=== PATIENT | male | born 1945 | race Caucasian/White ===

== ENCOUNTER → 2017-02-19 | Outpatient (CLI) | payer BC, OTHER ==
[~2017-02-19] MED LIST: ASCO10003 PO; ASPI325T45 PO; CALC-393 PO; CHOL100027 PO; CYAN500T PO; GLUCTAB7 PO; INSDGI SC; INSU100I SC; INSU1INJ23 SC; LOSA100T33 PO; METF-384 PO; MULT-506 PO; OMEP20CA9 PO; PLN/10 PO; PRAV20TA PO; TERA5CAP PO; ZINC1TAB PO
[2017-02-19 09:35] LABS: BASO % 0.8 %; BASO ABS # 0.03 K/uL (0-0.2); COMPLETE YES; EOS % 2.8 %; HEMATOCRIT 42.9 % (42-52); IG% 0.3 %; LYMPH % 46.7 %; LYMPH ABS # 1.82 K/uL (1.2-3.4); MEAN CELL VOLUME 92.7 fL (80-100); MEAN CORPUSCULAR HEMOGLOBIN 30.2 pg (25-34); MEAN CORPUSCULAR HGB CONC 32.6 g/dl (32-36); MEAN PLATELET VOLUME 10.9 fL (7.4-10.4); NEUT % 38.4 %; PLATELET COUNT 220 K/uL (130-400); RED BLOOD COUNT 4.63 M/uL (4.7-6.1)
[2017-02-19 09:55] LABS: CALCIUM 9.5 mg/dl (8.5-10.1)
[2017-02-19 09:56] LABS: ESTIMATED AVERAGE GLUCOSE 140 mg/dl; HA1C FLAG Normal (Normal)
[2017-02-19 09:57] LABS: ALB/GLOB RATIO 1.4 (0.9-2); ALT/SGPT 23 U/L (12-78); AST/SGOT 14 U/L (15-37); BLOOD UREA NITROGEN 24 mg/dl (7-18); CARBON DIOXIDE 31 mmol/L (21-32); CHLORIDE 104 mmol/L (98-107); CHOLESTEROL 131 mg/dl (0-200); CREATININE 0.76 mg/dl (0.60-1.40); GLUCOSE 116 mg/dl (70-99); POTASSIUM 3.9 mmol/L (3.5-5.1); SODIUM 142 mmol/L (136-145); TRIGLYCERIDES 31 mg/dl (0-150); VERY LOW DENSITY LIPOPROT CALC 6 mg/dl
[2017-02-19 10:07] LABS: ALKALINE PHOSPHATASE 57 U/L (45-117); CHOLESTEROL/HDL RATIO 1.9; HDL CHOLESTEROL 70 mg/dl; LDL CHOLESTEROL CALCULATED 55 mg/dl
[2017-02-19 10:25] LABS: RATIO 5.2 mcg/mg (0-30.0)
== END | disposition home or self-care (01) ==
LOC: C.LAB1850 07:18
PROVIDERS: ATTEND Internal Medicine Pulmonary Disease
DX: M50.90 Cervical disc disorder, unspecified, unspecified cervical region (principal); I10 Essential (primary) hypertension; G47.33 Obstructive sleep apnea (adult) (pediatric); E11.9 Type 2 diabetes mellitus without complications; M79.671 Pain in right foot

== ENCOUNTER → 2017-11-12 | Outpatient (CLI) | payer BC, OTHER | END | disposition home or self-care (01) | LOC: C.LAB1850 08:48 | DX: R97.20 Elevated prostate specific antigen [PSA] (principal) ==

== ENCOUNTER → 2017-11-22 | Outpatient (CLI) | payer BC, OTHER | END | disposition home or self-care (01) | LOC: C.RDSM 14:32 | PROVIDERS: ATTEND Physical Medicine & Rehabilitation Sports Medicine | DX: M25.569 Pain in unspecified knee (principal); Z96.652 Presence of left artificial knee joint ==

== ENCOUNTER → 2017-12-02 | Outpatient (CLI) | payer BC, OTHER | END | disposition home or self-care (01) | LOC: C.LAB1850 08:13 | PROVIDERS: ATTEND Nurse Practitioner Adult Health | DX: E11.9 Type 2 diabetes mellitus without complications (principal); Z79.4 Long term (current) use of insulin ==

== ENCOUNTER → 2018-01-31 | Outpatient (CLI) | payer BC, OTHER ==
[~2018-01-31] MED LIST changes: +ASPECOTC PO; -ASPI325T45 PO; +CALC600T9 PO; +IBUP1TAB PO; +MUSCLE RELAXER PO; +NAPR1TAB9 PO
[2018-01-31 09:41] LABS: BASO % 0.7 %; BASO ABS # 0.03 K/uL (0-0.2); EOS % 2.6 %; EOS ABS # 0.12 K/uL (0-0.5); HEMATOCRIT 43.4 % (42-52); HEMOGLOBIN 14.6 g/dL (14.0-18.0); IG# 0.03 K/uL (0.00-0.02); LYMPH ABS # 1.83 K/uL (1.2-3.4); MEAN CORPUSCULAR HEMOGLOBIN 30.6 pg (25-34); MEAN CORPUSCULAR HGB CONC 33.6 g/dl (32-36); MEAN PLATELET VOLUME 10.7 fL (7.4-10.4); MONO % 8.3 %; MONO ABS # 0.38 K/uL (0.11-0.59); NEUT % 47.7 %; NEUT ABS # 2.19 K/uL (1.4-6.5); PLATELET COUNT 233 K/uL (130-400); RED CELL DISTRIBUTION WIDTH CV 13.5 % (11.5-14.5); RED CELL DISTRIBUTION WIDTH SD 44.5 fL (36.4-46.3); WHITE BLOOD COUNT 4.58 K/uL (4.8-10.8)
[2018-01-31 10:08] LABS: ALBUMIN 3.9 gm/dl (3.4-5.0); ALT/SGPT 20 U/L (12-78); AST/SGOT 11 U/L (15-37); BLOOD UREA NITROGEN 24 mg/dl (7-18); CALCIUM 8.8 mg/dl (8.5-10.1); CARBON DIOXIDE 31 mmol/L (21-32); CHOLESTEROL 148 mg/dl (0-200); GLUCOSE 136 mg/dl (70-99); POTASSIUM 3.5 mmol/L (3.5-5.1); SODIUM 137 mmol/L (136-145)
[2018-01-31 10:18] LABS: ALKALINE PHOSPHATASE 60 U/L (45-117); LDL CHOLESTEROL CALCULATED 60 mg/dl; TOTAL PROTEIN 6.9 gm/dl (6.4-8.2)
== END | disposition home or self-care (01) ==
LOC: C.LAB1850 07:58
PROVIDERS: ATTEND Internal Medicine Pulmonary Disease
DX: E11.9 Type 2 diabetes mellitus without complications (principal); E78.5 Hyperlipidemia, unspecified; G47.33 Obstructive sleep apnea (adult) (pediatric); I10 Essential (primary) hypertension

== ENCOUNTER → 2018-02-02 | Outpatient (CLI) | payer BC, OTHER ==
[~2018-02-02] MED LIST changes: -CALC-393 PO; -GLUCTAB7 PO
--- NOTE | 2018-02-03 20:25 | HISTORY & PHYSICAL EXAMINATION ---
DATE OF ADMISSION: 02/02/2018 PREOPERATIVE HISTORY AND PHYSICAL DATE OF SURGERY: 02/23/2018 CHIEF COMPLAINT: Left knee pain. HISTORY OF PRESENT ILLNESS: This 72-year-old white male presents to the office with complaints of left knee pain that has been ongoing for a long period of time. Pain has become worse with time. It is affecting his ADLs. It is worse with weightbearing. No recent injury. He denies any catching or locking. No buckling. No numbness or tingling. He has a history of previous right total knee arthroplasty done many years ago. He states it is functioning well and wishes to proceed with the same on the left. Preoperative imaging has been obtained. He has tried conservative care measures including activity modification and oral anti-inflammatories without relief. PAST MEDICAL HISTORY: Significant for hypertension, sleep apnea, migraine headaches, diabetes, osteoarthritis, back pain, GERD, kidney stones, BPH, history of skin cancer, and moderate obesity. PREVIOUS SURGERIES: Appendectomy, varicocele repair, left knee arthroscopy, right knee TKA, back surgery for herniated disc, and skin biopsies for cancer. ALLERGIES: NKDA. CURRENT MEDICATIONS: Aspirin 325 mg daily, calcium daily, clobetasol 0.05% topical cream daily, felodipine 10 mg p.o. daily, glucosamine daily, Humalog subcutaneous daily, HCTZ/losartan 25/100 mg p.o. daily, Lantus SoloSTAR subcutaneous at bedtime, metformin 1000 mg p.o. daily, multivitamin daily, omeprazole 40 mg p.o. daily, pravastatin 20 mg p.o. at bedtime, terazosin 5 mg p.o. daily, vitamin C daily, zinc daily. SOCIAL HISTORY: Patient is retired. No tobacco use, occasional ETOH use. FAMILY HISTORY: Noncontributory. Parents are . REVIEW OF SYSTEMS: Significant for above stated conditions, otherwise unremarkable. PHYSICAL EXAMINATION: GENERAL: Well-developed, well-nourished elderly white male in no acute distress. Sitting in a chair. Alert and oriented. SKIN: Warm and dry with good turgor. No rashes or lesions. No ecchymosis. No intraarticular effusion. HEENT: Normocephalic, atraumatic. Eyes: PERRLA, EOMI. EARS: TMs intact bilaterally with good light reflexes, no erythema or bulging. Nares patent bilaterally without turbinate enlargement. Oropharynx without erythema or exudate. No lesions noted. Uvula midline. Oral mucosa moist. Fair dentition. Fillings and caps are noted. HEART: RRR. No MGR. LUNGS: Clear to auscultation bilaterally. No crackles, rhonchi or wheezing. Good air movement. ABDOMEN: Bowel sounds present x4, soft, nontender. No organomegaly. No masses. Moderately obese. MUSCULOSKELETAL: Left knee evaluation reveals no obvious asymmetry or deformity. He has full terminal extension. Flexion greater than 110 degrees. Varus alignment. Pseudovalgus laxity. Stable collateral ligaments. There is palpable crepitation with range of motion. Ambulatory with a slightly antalgic gait. NEUROLOGIC: Gross sensation is intact across the lower extremities by soft touch. Cranial nerves II-XII are intact. DATA: Radiographic imaging previously obtained shows advanced DJD of the left knee medial compartment. He has significant joint space narrowing. Subchondral cyst formation and varus alignment are also present. Periarticular osteophytes are also present. IMPRESSION: Left knee end-stage degenerative joint disease. PLAN: Informed written consent to proceed with left total knee arthroplasty will be obtained the day of surgery. Postoperative prescriptions for Percocet and Coumadin will be provided at discharge from the hospital. Anticipate discharge to home with either outpatient PT or home health services. He already has a walker. Preoperative lab work, EKG, and chest x-ray have been ordered. Medical clearance was requested from his PCP.
== END | disposition home or self-care (01) ==
LOC: C.LAB1850 10:22
PROVIDERS: ATTEND Physician Assistant
DX: Z01.812 Encounter for preprocedural laboratory examination (principal)

== ENCOUNTER 2018-02-23 05:04 | Inpatient (IN) | payer BC, OTHER ==
[2018-01-31 11:20] VITALS: BMI 31.0
--- NOTE | 2018-01-31 11:57 | PAT Medication Instructions ---
Service Date Jan 31, 2018. Current Home Medication List Ascorbic Acid (Vitamin C), 1,000 MG PO BID Aspirin (Aspirin), 325 MG PO QAM Calcium Carbonate-Vitamin D (Calcium + D), 1 TAB PO QAM Cholecalciferol (Vitamin D 1000 Unit), 1,000 INTER.UNIT PO QPM Cyanocobalamin (Vitamin B-12), 2,500 MCG PO BID Felodipine (Felodipine ER), 10 MG PO QPM Hctz/Losartan (Hyzaar 12.5MG/100MG), 1 TAB PO QAM Ibuprofen-Diphenhydramine Citr (Advil Pm), 1 TAB PO UD PRN for PRN Insulin Glargine (Lantus), 8 UNITS SC HS Insulin Isophane (Human) (Humulin N Kwikpen), 16 UNITS SC HS Insulin Lispro (Human) (Humalog), 3-10 UNITS SC Metformin Hcl (Glucophage), 1,000 MG PO QAM Multivitamin (Multivitamin), 1 TAB PO QAM Naproxen (Aleve), 220 MG PO UD PRN for PRN Omeprazole (Prilosec), 20 MG PO BID Pravastatin (Pravachol ), 20 MG PO QPM Terazosin (Hytrin), 5 MG PO QPM Zinc Gluconate (Zinc), 50 MG PO QAM [Muscle Relaxer], Unknown Dose PO UD PRN for MUSCLE SPASM Medication Instructions For Your Scheduled Surgery -Contact your surgeon for instructions for: Ibuprofen-Diphenhydramine Citr (Advil Pm), 1 TAB PO UD PRN for PRN Naproxen (Aleve), 220 MG PO UD PRN for PRN - Hold the following medications 5 days prior to surgery per your surgeon's instructions: Aspirin (Aspirin), 325 MG PO QAM - Hold the following medications the morning of surgery: Ascorbic Acid (Vitamin C), 1,000 MG PO BID Calcium Carbonate-Vitamin D (Calcium + D), 1 TAB PO QAM Cyanocobalamin (Vitamin B-12), 2,500 MCG PO BID Hctz/Losartan (Hyzaar 12.5MG/100MG), 1 TAB PO QAM Insulin Lispro (Human) (Humalog), 3-10 UNITS SC Metformin Hcl (Glucophage), 1,000 MG PO QAM Multivitamin (Multivitamin), 1 TAB PO QAM Zinc Gluconate (Zinc), 50 MG PO QAM [Muscle Relaxer], Unknown Dose PO UD PRN for MUSCLE SPASM - Take the following medications the morning of surgery with a sip of water: Omeprazole (Prilosec), 20 MG PO BID - Take the following medications as scheduled the night before surgery: Ascorbic Acid (Vitamin C), 1,000 MG PO BID Cholecalciferol (Vitamin D 1000 Unit), 1,000 INTER.UNIT PO QPM Cyanocobalamin (Vitamin B-12), 2,500 MCG PO BID Felodipine (Felodipine ER), 10 MG PO QPM Insulin Glargine (Lantus), 8 UNITS SC HS Insulin Isophane (Human) (Humulin N Kwikpen), 16 UNITS SC HS Insulin Lispro (Human) (Humalog), 3-10 UNITS SC Omeprazole (Prilosec), 20 MG PO BID Pravastatin (Pravachol ), 20 MG PO QPM Terazosin (Hytrin), 5 MG PO QPM [Muscle Relaxer], Unknown Dose PO UD PRN for MUSCLE SPASM (if needed) If you have any questions please call us at [phone] or [phone] or [phone]
[2018-01-31 12:53] LABS: PTT PATIENT 27.8 SECONDS (21.0-31.0)
--- NOTE | 2018-01-31 14:06 | DIAGNOSTIC IMAGING REPORT ---
CHEST 2 VIEWS ROUTINE CLINICAL HISTORY: 72 years-old Male presenting with preoperative assessment. TECHNIQUE: PA and lateral views of the chest were obtained. COMPARISON: 06/19/2014. FINDINGS: Atherosclerosis of the aortic arch. Cardiac silhouette normal in size. Lungs and pleural spaces clear. Degenerative changes of the thoracic spine. Cholecystectomy clips noted. IMPRESSION: 1. No acute cardiopulmonary disease. Electronically signed by: Moreno Andre M.D. 01/31/2018 2:05 PM Dictated Date/Time: 01/31/2018 2:04 PM
--- NOTE | 2018-02-03 20:25 | HISTORY & PHYSICAL EXAMINATION ---
DATE OF SURGERY: 02/23/2018 CHIEF COMPLAINT: Left knee pain. HISTORY OF PRESENT ILLNESS: This 72-year-old white male presents to the office with complaints of left knee pain that has been ongoing for over a year. Pain has become worse with time. It is affecting his ADLs. It is worse with weightbearing. No recent injury. He denies any catching or locking. No buckling. No numbness or tingling. He has a history of previous right total knee arthroplasty done many years ago. He states it is functioning well and wishes to proceed with the same on the left. Preoperative imaging has been obtained. He has tried conservative care measures including activity modification and oral anti-inflammatories without relief. PAST MEDICAL HISTORY: Significant for hypertension, sleep apnea, migraine headaches, diabetes, osteoarthritis, back pain, GERD, kidney stones, BPH, history of skin cancer, and moderate obesity. PREVIOUS SURGERIES: Appendectomy, varicocele repair, left knee arthroscopy, right knee TKA, back surgery for herniated disc, and skin biopsies for cancer. ALLERGIES: NKDA. CURRENT MEDICATIONS: Aspirin 325 mg daily, calcium daily, clobetasol 0.05% topical cream daily, felodipine 10 mg p.o. daily, glucosamine daily, Humalog subcutaneous daily, HCTZ/losartan 25/100 mg p.o. daily, Lantus SoloSTAR subcutaneous at bedtime, metformin 1000 mg p.o. daily, multivitamin daily, omeprazole 40 mg p.o. daily, pravastatin 20 mg p.o. at bedtime, terazosin 5 mg p.o. daily, vitamin C daily, zinc daily. SOCIAL HISTORY: Patient is retired. No tobacco use, occasional ETOH use. FAMILY HISTORY: Noncontributory. Parents are . REVIEW OF SYSTEMS: Significant for above stated conditions, otherwise unremarkable. PHYSICAL EXAMINATION: GENERAL: Well-developed, well-nourished elderly white male in no acute distress. Sitting in a chair. Alert and oriented. SKIN: Warm and dry with good turgor. No rashes or lesions. No ecchymosis. No intraarticular effusion. HEENT: Normocephalic, atraumatic. Eyes: PERRLA, EOMI. EARS: TMs intact bilaterally with good light reflexes, no erythema or bulging. Nares patent bilaterally without turbinate enlargement. Oropharynx without erythema or exudate. No lesions noted. Uvula midline. Oral mucosa moist. Fair dentition. Fillings and caps are noted. HEART: RRR. No MGR. LUNGS: Clear to auscultation bilaterally. No crackles, rhonchi or wheezing. Good air movement. ABDOMEN: Bowel sounds present x4, soft, nontender. No organomegaly. No masses. Moderately obese. MUSCULOSKELETAL: Left knee evaluation reveals no obvious asymmetry or deformity. He has full terminal extension. Flexion greater than 110 degrees. Varus alignment. Pseudovalgus laxity. Stable collateral ligaments. There is palpable crepitation with range of motion. Ambulatory with a slightly antalgic gait. NEUROLOGIC: Gross sensation is intact across the lower extremities by soft touch. Cranial nerves II-XII are intact. DATA: Radiographic imaging previously obtained shows advanced DJD of the left knee medial compartment. He has significant joint space narrowing. Subchondral cyst formation and varus alignment are also present. Periarticular osteophytes are also present. IMPRESSION: Left knee end-stage degenerative joint disease. PLAN: Informed written consent to proceed with left total knee arthroplasty will be obtained the day of surgery. Postoperative prescriptions for Percocet and Coumadin will be provided at discharge from the hospital. Anticipate discharge to home with either outpatient PT or home health services. He already has a walker. Preoperative lab work, EKG, and chest x-ray have been ordered. Medical clearance was requested from his PCP. JUDY
[~2018-02-23] VITALS: Ht 182.9 cm; Wt 103.4 kg
[2018-02-23] VITALS (10 sets, daily range): BP systolic 108–128; BP diastolic 71–81; PULSE 51–71; TEMP 36.4–36.8; O2SAT 94–100; BMI 31.0
[2018-02-23] MEDS ORDERED: TRANEXAMIC ACID INJ 1,000 MG x 2 Bags IV SCH ×2 (06:00)
[2018-02-23] MEDS ORDERED: ROPIVACAINE 5MG/ML 30 ML 150 MG, BUPIVACAINE 0.5% MPF INJ 30 ML, EpINEphrine HCL INJ 0.... INFIL SCH ×8 (06:00)
[2018-02-23] MEDS ORDERED: LACTATED RINGER'S 1000ML 1,000 ML IV SCH (06:00)
[2018-02-23] MEDS ORDERED: LACTATED RINGER'S 1000ML IV SCH (06:00)
[2018-02-23] MEDS ORDERED: CEFAZOLIN 2000MG IV PUSH 15 ML IV SCH (06:00)
[2018-02-23] MEDS ORDERED: BUPIVACAINE 0.25% 30 ML VIAL ONE (06:21)
[2018-02-23] MEDS ORDERED: BUPIVACAINE 0.5 % 5 MG/1 ML PF 10ML VIAL ONE (06:21)
--- NOTE | 2018-02-23 06:25 | History & Physical Bridge Note ---
H&P Re-Evaluation Bridge Note: I have examined the patient, reviewed the History & Physical and in the interval since the performance of the History & Physical I have noted the following changes of clinical significance: consent obtained.No changes noted
[2018-02-23] MEDS ORDERED: ORTHO JOINT ANESTHETIC ONE (06:26)
[2018-02-23] MEDS ORDERED: POVIDONE-IODINE OP SOLN 30 ML BTL ONE (06:26)
[2018-02-23] MEDS ORDERED: MIDAZOLAM HCL 1 MG/ML 2ML VIAL ONE ×2 (06:40→06:42)
[2018-02-23] MEDS ORDERED: LIDOCAINE HCL 2% 2 ML VIAL (20MG/ML) ONE (06:42)
[2018-02-23] MEDS ORDERED: FENTANYL CITRATE INJ 50 MCG/1 ML 2 ML VIAL ONE (06:42)
[2018-02-23] MEDS ORDERED: PROPOFOL IV EMULSION 10 MG/ML 20 ML VIAL ONE (06:42)
[2018-02-23] MEDS ORDERED: NovoLIN-R INSULIN PER UNIT CHARGE ONE (07:58)
--- NOTE | 2018-02-23 08:24 | [facility] Post Operative Brief Note ---
Immediate Operative Summary Operative Date February 23, 2018. Pre-Operative Diagnosis Left Knee Degenerative Joint Disease Post-Operative Diagnosis Same as preop Procedure(s) Performed Left Total Knee Arthroplasty Surgeon Dr. Burton Supervisor Contingents Surgeon(s) Donovan Flores PA-C Estimated Blood Loss 100 ml Findings Consistent with Post-Op Diagnosis Fluids (cc crystalloids) 1100cc Specimens A. Right Knee Bone and Tissue Drains None Anesthesia Type MAC Spinal Regional Complication(s) none Disposition Accompanied Pt To Recover: no Disposition: Recovery Room / PACU
[2018-02-23] MEDS ORDERED: ONDANSETRON INJ 2 MG/ML 2 ML VIAL IV PRN ×2 (08:30)
[2018-02-23] MEDS ORDERED: BISACODYL 10 MG SUPP PR PRN (08:30)
[2018-02-23] MEDS ORDERED: METOCLOPRAMIDE HCL INJ 5 MG/ML 2 ML VIAL IV PRN (08:30)
[2018-02-23] MEDS ORDERED: ALUMINUM/MAGNESIUM/SIMETH (MAALOX MAX) 30 ML UDC PO PRN (08:30)
[2018-02-23] MEDS ORDERED: MAGNESIUM HYDROXIDE SUSP 30 ML UDC PO PRN (08:30)
[2018-02-23] MEDS ORDERED: DiphenhydrAMINE HCL 50 MG/ML VIAL IV PRN (08:30)
[2018-02-23] MEDS ORDERED: ACETAMINOPHEN 325 MG TAB PO PRN (08:30)
[2018-02-23] MEDS ORDERED: ATROPINE SULFATE 0.1 MG/ML 5ML SYR IV PRN (08:30)
[2018-02-23] MEDS ORDERED: ACETAMINOPHEN IV 100 ML IV PRN (08:30)
[2018-02-23] MEDS ORDERED: EpHEDrine SULFATE INJ 50 MG/ML AMP IV PRN (08:30)
[2018-02-23] MEDS ORDERED: MoRPHine SULFATE 4 MG/ML 1 ML CARP\\VIAL IV PRN (08:30)
[2018-02-23] MEDS: LOSARTAN/HCTZ 50-12.5 EA TAB PO SCH (09:00)
--- NOTE | 2018-02-23 09:10 | DIAGNOSTIC IMAGING REPORT ---
L KNEE 1 OR 2 VIEWS ROUTINE CLINICAL HISTORY: 72 years-old Male presenting with AP/LATERAL IN PACU LEFT KNEE. TECHNIQUE: Frontal and crosstable lateral views of the left knee were obtained. COMPARISON: 11/22/2017. FINDINGS: Post surgical changes of total left knee arthroplasty with patellar resurfacing. Expected intra-articular and soft tissue emphysema. Overlying skin faith. A loose body or degenerative related ossicle is noted at the medial and posterior knee joint. No periprosthetic fracture. No malalignment. No hardware complication. IMPRESSION: Expected postsurgical changes status post left knee arthroplasty with patellar resurfacing. Electronically signed by: Moreno Andre M.D. 02/23/2018 9:09 AM Dictated Date/Time: 02/23/2018 9:08 AM
--- NOTE | 2018-02-23 09:16 | OPERATIVE REPORT ---
DATE OF OPERATION: 02/23/2018 SURGEON: Dewey Burton MD FROG CATCHER: Sandra. No resident or fellow available. PREOPERATIVE DIAGNOSIS: Osteoarthritis with varus deformity, left knee. POSTOPERATIVE DIAGNOSIS: Osteoarthritis with varus deformity, left knee. OPERATION PERFORMED: Cemented left total knee replacement. PERIOPERATIVE SITUATION: Medically cleared male with intractable knee pain, has been followed for years with observation of his left knee, had his right knee replaced years ago. Now, has increasing pain with x-rays revealing substantial varus medial compartment narrowing, subchondral cyst formation, and lateral subluxation. SUMMARY OF IMPLANTS: Size 3 left femur, posterior cruciate substituting size 4 mobile bearing tray tibia, oval domed 3 pegged patella size 41, size 3 spacer 10 mm thick PCL substituting, Two bags of Pal[place]os G cement. ESTIMATED BLOOD LOSS: 100 mL. CRYSTALLOID: 1100 mL. DESCRIPTION OF PROCEDURE: The patient was appropriately identified, site verified, consent verified, 2 grams of Ancef confirmed as being given, 1 gram of TXA confirmed as being given. The left lower extremity was prepped and draped in the usual routine fashion. There was 1 gram of TXA. Midline exposure was utilized. Parapatellar arthrotomy performed. Synovectomy completed, osteophytes resected. Distal femur had grade 4 disease, medial grade 4 disease tibia, substantial patellofemoral disease grade 3-4 throughout, lateral compartment grade 2 disease. The ACL was absent. The PCL was intact. Osteophytes were resected. The box area did open up and the distal femur entered with a drill bit. The cruciates were resected. Distal femur then resected 12 mm, the proximal tibia then resected 4 mm, the extension gap was excellent. Femur was sized to a size 3. Appropriate cutting block applied. The anterior, posterior, chamfer cuts were then made and there was no notching. The flexion gap was then checked. It was excellent. Two injections of Orthomix were applied to the posterior capsule. Flexion gap again was excellent. A box cut was then made and the size 3 trial fit well. The tibia was then broached and reamed to a size 4 and with a 10 mm spacer. There was good stability through full range of motion including mid range flexion. There were no extension problems. He was able to get out to 0. Patella was sized to a 41, appropriate resection made leaving 15.5 to 16 mm of patella. The seating holes made and the trial tracked well. The rest of the Orthomix was then injected. The trial implants were then removed and then the wound irrigated with Betadine Pulsavac permanent cemented into position. After 12 minutes, the tourniquet deflated. Bleeding points controlled. After 14 minutes, the knee flexed, the trial spacer removed. The wound irrigated with Betadine Pulsavac. No cement needed to be removed. Permanent liner seated and then the knee reduced and closed with #2 Vicryl, #1 Vicryl, 2-0 Vicryl, and stainless steel clips. Appropriate dressing applied and the patient transferred to recovery room in satisfactory condition having tolerated the procedure well. ESTIMATED BLOOD LOSS: 100 mL. IMPLANTS: As noted above. Deep venous thrombosis prophylaxis per protocol. I attest to the content of the Intraoperative Record and any orders documented therein. Any exception s are noted below.
[2018-02-23] MEDS ORDERED: GLUCAGON FOR INJ 1 MG VIAL IM PRN (10:00)
[2018-02-23] MEDS ORDERED: SODIUM CHLORIDE 0.9% 1000ML 1,000 ML IV SCH (10:00)
[2018-02-23] MEDS ORDERED: DEXTROSE 50% 50 ML SYR IV PRN (10:00)
[2018-02-23] MEDS ORDERED: CARBOHYDRATES FOR HYPOGLYCEMIA PO PRN (10:00)
[2018-02-23] MEDS ORDERED: GLUCOSE 10 TABS/TUBE PO PRN (10:00)
[2018-02-23] MEDS ORDERED: GLUCOSE 40% GEL 15 GM TUBE PO PRN (10:00)
[2018-02-23] MEDS ORDERED: TAMSULOSIN HCL 0.4 MG CAP PO PRN (10:00)
[2018-02-23] MEDS: PANTOprazole SOD 40 MG TAB PO SCH (10:31)
[2018-02-23] MEDS: MULTIVITAMIN TAB PO SCH (10:31)
[2018-02-23] MEDS: DOCUSATE SODIUM 100 MG CAP PO SCH ×2 (10:32→22:10)
[2018-02-23] MEDS: KETOROLAC TROMETHAMINE 15 MG/ML VIAL IV. SCH ×3 (10:32→22:09)
--- NOTE | 2018-02-23 11:27 | Anesthesiology Progress Note ---
Anesthesia Post Op Note Date & Time February 23, 2018 at 11:26 Vital Signs Pain Intensity: 0 Vital Signs Past 12 Hours Date Time Temp Pulse Resp B/P (MAP) Pulse Ox O2 Delivery O2 Flow Rate FiO2 02/23/18 10:38 36.5 55 16 118/73 (88) 99 Nasal Cannula 2.0 02/23/18 10:10 36.4 51 16 113/73 (86) 100 Nasal Cannula 2.0 02/23/18 09:41 99 Nasal Cannula 2.0 02/23/18 09:40 98 Nasal Cannula 2.0 02/23/18 09:38 36.6 52 14 108/71 (83) 99 Nasal Cannula 2.0 02/23/18 09:15 36.7 54 13 107/62 98 Nasal Cannula 2 02/23/18 09:05 51 17 107/65 97 Nasal Cannula 2 02/23/18 08:55 53 14 106/62 99 Nasal Cannula 2 02/23/18 08:45 53 12 106/64 99 Nasal Cannula 2 02/23/18 08:35 53 16 106/62 97 Nasal Cannula 2 02/23/18 08:27 36.4 63 12 103/59 97 Nasal Cannula 2 02/23/18 05:36 36.8 66 20 127/73 97 Room Air Notes Mental Status: alert / awake / arousable, participated in evaluation Pt Amnestic to Procedure: Yes Nausea / Vomiting: adequately controlled Pain: adequately controlled Airway Patency, RR, SpO2: stable & adequate BP & HR: stable & adequate Hydration State: stable & adequate Neuraxial Anesthesia: was administered, sensory block is resolving Anesthetic Complications: no major complications apparent
[2018-02-23] MEDS ORDERED: INSULIN ASPART 100 UNITS/ML 3 ML PEN SC SCH (12:00)
--- NOTE | 2018-02-23 12:07 | Medical Consult ---
Consultation Date of Consultation: February 23, 2018. Attending Physician: Dewey Burton M.D. Reason for Consultation: Medical Management History of Present Illness This is a 72 yo M with PMHx of HTN, DM II, diabetic peripheral neuropathy, MATTHEW on cpap, GERD, BPH, back pain who underwent elective left TKA by Dr. Boo on 02/23/18. Pt reports doing well today, he denies knee pain, numbness or paresthesias currently. Pt has been ambulating to the restroom and is passing gas, no BM yet. His is present at bedside. He is planning on outpatient PT once per week after discharge at this time. Past Medical/Surgical History HTN DM II diabetic peripheral neuropathy MATTHEW on cpap GERD BPH chronic back pain Family History Cerebral artery occlusion MOTHER FH: arthritis FH: cancer Social History Smoking Status: Former Smoker (smoked pipe over 20 years ago occasionally) Smokeless Tobacco Use: No Alcohol Use: none Drug Use: none Marital Status: Housing Status: lives with family Occupation Status: retired Allergies Coded Allergies: No Known Allergies (Verified , 02/23/18) Current Inpatient Medications Current Inpatient Medications Medications (Trade) Dose Ordered Sig/Mala Route Start Time Stop Time Status Last Admin Dose Admin Lactated Ringer's 1,000 ml @ 15 mls/hr Q24H IV 02/23/18 06:00 02/24/18 05:59 02/23/18 06:28 15 MLS/HR Lactated Ringer's 1,000 ml @ 60 mls/hr [id number] IV 02/23/18 06:00 02/23/18 22:39 Cefazolin Sodium 15 ml @ 3.75 mls/ min PREOP IV 02/23/18 06:00 02/23/18 18:00 02/23/18 06:54 3.75 MLS/MIN Ondansetron HCl (Zofran Inj) 4 mg ONE PRN IV 02/23/18 08:30 02/23/18 13:30 Ephedrine Sulfate (EpHEDrine SULFATE INJ) 5 mg Q5M PRN IV 02/23/18 08:30 02/23/18 13:30 Atropine Sulfate (Atropine Sulfate 0.1mg/ml Inj) 0.5 mg Q1M PRN IV 02/23/18 08:30 02/23/18 13:30 Sodium Chloride 1,000 ml @ 100 mls/hr Q10H IV 02/23/18 10:00 02/24/18 09:59 02/23/18 10:33 100 MLS/HR Cefazolin Sodium 2000 mg/Syringe 15 ml @ 3.75 mls/ min Q8H IV 02/23/18 15:00 02/23/18 23:03 Ketorolac Tromethamine (Toradol Inj) 15 mg Q6H IV. 02/23/18 10:00 02/24/18 09:59 02/23/18 10:32 15 MG Oxycodone HCl (Roxicodone Immediate Rel Tab) 1 TABLET FOR PAIN RATING... Q4H PRN PO 02/23/18 08:30 03/09/18 08:29 Morphine Sulfate (MoRPHine SULFATE INJ) give 2mg for pain 3-6 g... Q1H PRN IV 02/23/18 08:30 03/09/18 08:29 Acetaminophen (Tylenol Tab) 650 mg Q6H PRN PO 02/23/18 08:30 03/25/18 08:29 Magnesium Hydroxide (Milk Of Magnesia Susp) 30 ml Q6H PRN PO 02/23/18 08:30 03/25/18 08:29 Bisacodyl (Dulcolax Supp) 10 mg DAILY PRN CO 02/23/18 08:30 03/25/18 08:29 Docusate Sodium (coLACE CAP) 100 mg BID PO 02/23/18 09:00 03/25/18 08:59 02/23/18 10:32 100 MG Diphenhydramine HCl (Benadryl Inj) 25 mg Q8H PRN IV 02/23/18 08:30 03/25/18 08:29 Al Hydrox/Mg Hydrox/Simethicone (Maalox Max Susp) 15 ml Q4H PRN PO 02/23/18 08:30 03/25/18 08:29 Multivitamins (Multivitamin Tab) 1 tab QAM PO 02/23/18 09:00 03/25/18 08:59 02/23/18 10:31 1 TAB Ondansetron HCl (Zofran Inj) 4 mg Q6H PRN IV 02/23/18 08:30 03/25/18 08:29 Metoclopramide HCl (Reglan Inj) 10 mg Q6H PRN IV 02/23/18 08:30 03/25/18 08:29 Ferrous Gluconate (Ferrous Gluconate Tab) 324 mg TIDM PO 02/23/18 12:00 03/25/18 11:59 Pantoprazole Sodium (Protonix Tab) 40 mg QAM PO 02/23/18 10:30 02/27/18 10:29 02/23/18 10:31 40 MG Tamsulosin HCl (Flomax Cap) 0.4 mg QAM PRN PO 02/23/18 10:00 03/25/18 09:59 Tranexamic Acid 1000 mg/Sodium Chloride 110 ml @ 660 mls/hr Q6H IV 02/23/18 14:30 02/23/18 14:39 Dexamethasone Sodium Phosphate 10 mg/Syringe 2.5 ml @ 1 mls/min TODAY@0730 ONCE IV 02/24/18 07:30 02/24/18 07:32 Pravastatin Sodium (Pravachol Tab) 20 mg QPM PO 02/23/18 21:00 03/25/18 20:59 Terazosin HCl (Hytrin Cap) 5 mg QPM PO 02/23/18 21:00 03/25/18 20:59 Felodipine (Plendil Tabcr) 10 mg QPM PO 02/23/18 21:00 03/25/18 20:59 HCTZ/Losartan Potassium (Hyzaar 50-12.5 Tab) 2 tab QAM PO 02/23/18 09:00 03/25/18 08:59 Acetaminophen 100 ml @ 400 mls/hr Q8H PRN IV 02/23/18 08:30 02/24/18 09:00 Insulin Aspart (novoLOG ASPART) SLIDING SCALE G... ACHS SC 02/23/18 12:00 03/25/18 11:59 Glucose (Glucose 40% Gel) 15-30 GRAMS 15 GRAMS... UD PRN PO 02/23/18 10:00 03/25/18 09:59 Glucose (Glucose Chew Tab) 4-8 Tablets 4 Tabl... UD PRN PO 02/23/18 10:00 03/25/18 09:59 Dextrose (Dextrose 50% 50ML Syringe) 25-50ML 25ML FOR ... UD PRN IV 02/23/18 10:00 03/25/18 09:59 Glucagon (Glucagon Inj) 1 mg UD PRN IM 02/23/18 10:00 03/25/18 09:59 Carbohydrates (Carbohydrates For Hypoglycemia) 15-30 GRAMS 15 grams if BSG 54-69... UD PRN PO 02/23/18 10:00 03/25/18 09:59 Warfarin Sodium (Coumadin Tab) 5 mg TODAY@1600 ONCE PO 02/23/18 16:00 02/23/18 16:01 Review of Systems Constitutional: No fever, No chills, No sweats Eyes: No diplopia, No problem reported ENT: No sore throat, No trouble swallowing Respiratory: No cough, No shortness of breath Cardiovascular: No chest pain, No palpitations Abdomen: No pain, No nausea, No vomiting, No diarrhea, No constipation Musculoskeletal: No joint pain, No swelling Genitourinary - Male: No hematuria, No dysuria Neurologic: No weakness, No numbness/tingling Psychiatric: No depression symptoms, No anxiety Integumentary: No rash, No itch Physical Exam Date Time Temp Pulse Resp B/P (MAP) Pulse Ox O2 Delivery O2 Flow Rate FiO2 02/23/18 11:40 36.4 54 16 126/80 (95) 99 Nasal Cannula 2.0 02/23/18 10:38 36.5 55 16 118/73 (88) 99 Nasal Cannula 2.0 02/23/18 10:10 36.4 51 16 113/73 (86) 100 Nasal Cannula 2.0 02/23/18 09:41 99 Nasal Cannula 2.0 02/23/18 09:40 98 Nasal Cannula 2.0 02/23/18 09:38 36.6 52 14 108/71 (83) 99 Nasal Cannula 2.0 02/23/18 09:15 36.7 54 13 107/62 98 Nasal Cannula 2 02/23/18 09:05 51 17 107/65 97 Nasal Cannula 2 02/23/18 08:55 53 14 106/62 99 Nasal Cannula 2 02/23/18 08:45 53 12 106/64 99 Nasal Cannula 2 02/23/18 08:35 53 16 106/62 97 Nasal Cannula 2 02/23/18 08:27 36.4 63 12 103/59 97 Nasal Cannula 2 02/23/18 05:36 36.8 66 20 127/73 97 Room Air General Appearance: WD/WN, no apparent distress Head: normocephalic, atraumatic Eyes: PERRL, EOMI ENT: hearing grossly normal, TMs normal Neck: supple, no JVD Respiratory/Chest: chest non-tender, lungs clear, no respiratory distress, no accessory muscle use Cardiovascular: regular rate, rhythm, no murmur, normal peripheral pulses Abdomen/GI: normal bowel sounds, non tender, soft Extremities/Musculoskelatal: no calf tenderness, + pertinent finding (L knee dressing c/d/i, ice pack on. Sensation to light touch distally intact. ) Neurologic/Psych: alert, normal mood/affect, oriented x 3 Skin: normal color, warm/dry Laboratory Results Last 24 Hours Test 02/23/18 05:20 02/23/18 05:48 02/23/18 09:00 Bedside Glucose 248 mg/dl 242 mg/dl Hepatitis C Antibody Screen NEG Assessment & Plan This is a 72 yo M with PMHx of HTN, DM II, diabetic peripheral neuropathy, MATTHEW on cpap, GERD, BPH, back pain who underwent elective left TKA by Dr. Boo on 02/23/18. S/p L TKA - pain management, bowel regimen, DVT ppx with coumadin per primary team - PT/OT on board - follow am hgb HTN HLD - Continue home antihypertensives: hyzaar 100-25 mg QAM, statin therapy DM II - Holding metformin - Continue Lantus 15 U HS to adjust for steroid/surgery (home dosing is 8 U QPM ) and ISS with accuchecks achs for now - pt uses sliding scale at home MATTHEW on cpap - plans to bring home equipment in today. BPH - Continue hytrin and flomax GERD - cont ppi DVT ppx: teds, scds, coumadin CODE: FULL Disposition: From home, discharge to home possibly tomorrow per primary team Thank you for allowing us to participate in the care of Mr. Langston, we will continue to follow along. Attending Attestation - Pt seen/examined, chart reviewed, care plan d/w [facility] Benitez. I agree w/ the mast components of her consult documentation. 72yo male with MATTHEW on CPAP, T2DM with neuropathy, and HTN who presented today for elective left TKR by Dr. Burton. He was resting comfortably on the ortho floor during my assessment. Denied cp, sob, abd pain. Follows with Bryanna Enzo from the endo clinic for DM. Typically takes up to 10 units of novolog w/ meals along with lantus & NPH at bedtime. Took smaller amounts of latter last pm in preparation for surgery. PMH, PSH, allergies, meds, sochx, famxh, ros - reviewed VSS no fever gen - nad neck - no JVD heart - RRR, s1, s2 lungs - CTA b/l abd - soft, NT, BS+ ext - mild edema left foot, dressings intact left knee, right ankle w/o edema A/P: 1. s/p Left TKR 2. uncontrolled T2DM - 2nd to perioperative stress & decadron. Lantus 10 units x 1 now. Then 22 units of lantus at HS tonight. Adjust novolog - correction factor 20, carb ratio 1:6. Suspect sugars will be high through tomorrow AM in light of decadron. 3. HTN - hold HCTZ / MARTINEZ until the AM (labs can be assessed then). 4. MATTHEW - CPAP. Hermes San MD
[2018-02-23] MEDS: FERROUS GLUCONATE 324 MG TAB PO SCH ×2 (12:30→18:15)
[2018-02-23] MEDS: OXYCODONE HCL IR 5 MG TAB (IMMEDIATE RELEASE) PO PRN (13:05)
--- NOTE | 2018-02-23 13:08 | PROGRESS NOTE ---
DATE: 02/23/2018 Status post left total knee replacement. The patient is sitting up in bed with no complaints. He denies chest pain, shortness of breath, fever, chills, nausea, vomiting or headache. He has been eating. He notes he has been up to the bathroom. He is voiding. Femoral sciatic nerve function is excellent. Postop x-rays look excellent. ASSESSMENT: Doing well. Continue with postop care pathway. Mobilize. Hep-Lock IV fluid at this point.
[2018-02-23] MEDS ORDERED: TRANEXAMIC ACID INJ 1,000 MG in SODIUM CHLORIDE 0.9% 100ML 100 ML IV SCH (14:30)
[2018-02-23] MEDS ORDERED: INSULIN GLARGINE SOLOSTAR 100 UNITS/ML 3 ML PEN SC STA (14:30)
[2018-02-23] MEDS: CEFAZOLIN IV 2,000 MG in SYRINGE 0 ML IV SCH ×2 (14:46→22:36)
[2018-02-23] MEDS ORDERED: WARFARIN SOD 5 MG TAB PO ONE (16:00)
[2018-02-23] MEDS: INSULIN ASPART 100 UNITS/ML 3 ML PEN SC SCH ×2 (18:46→22:09)
[2018-02-23] MEDS ORDERED: INSULIN GLARGINE SOLOSTAR 100 UNITS/ML 3 ML PEN SC SCH ×2 (21:00)
[2018-02-23] MEDS ORDERED: PRAVASTATIN SOD 20 MG TAB PO SCH (21:00)
[2018-02-23] MEDS ORDERED: FELODIPINE 5 MG TABCR PO SCH (21:00)
[2018-02-23] MEDS ORDERED: PHARMACY GLYCEMIC MGMT CONSULT PRN (21:30)
[2018-02-23] MEDS ORDERED: INSULIN HUMAN REGULAR PER UNIT 5 UNITS in SYRINGE 4.95 ML IV ONE (21:45)
[2018-02-24] VITALS (7 sets, daily range): BP systolic 90–123; BP diastolic 56–72; PULSE 58–66; TEMP 36.5–37; O2SAT 96–99; Ht 182.9 cm; Wt 103.4 kg
[2018-02-24] MEDS ORDERED: INSULIN ASPART 100 UNITS/ML 3 ML PEN SC ONE
[2018-02-24] MEDS: INSULIN ASPART 100 UNITS/ML 3 ML PEN SC SCH ×4 (00:34→13:13)
[2018-02-24] MEDS: SODIUM CHLORIDE 0.9% 1000ML 1,000 ML IV SCH ×2 (04:07→12:37)
[2018-02-24] MEDS: KETOROLAC TROMETHAMINE 15 MG/ML VIAL IV. SCH (04:08)
[2018-02-24 04:15] LABS: HEMATOCRIT 30.2 % (42-52); HEMOGLOBIN 10.3 g/dL (14.0-18.0); MEAN CELL VOLUME 89.9 fL (80-100); MEAN CORPUSCULAR HEMOGLOBIN 30.7 pg (25-34); MEAN PLATELET VOLUME 10.1 fL (7.4-10.4); PLATELET COUNT 165 K/uL (130-400); RED CELL DISTRIBUTION WIDTH CV 13.6 % (11.5-14.5); RED CELL DISTRIBUTION WIDTH SD 45.2 fL (36.4-46.3)
[2018-02-24 04:18] LABS: MEAN CORPUSCULAR HGB CONC 34.1 g/dl (32-36)
[2018-02-24 04:32] LABS: CALCIUM 8.2 mg/dl (8.5-10.1); CREATININE 0.86 mg/dl (0.60-1.40); POTASSIUM 4.1 mmol/L (3.5-5.1)
--- NOTE | 2018-02-24 06:27 | PROGRESS NOTE ---
DATE: 02/24/2018 Postop day #1 status post left total knee replacement. Patient is doing well. No major issues. Glucose is a little bit high, likely based on Orthomix injection. Vital signs are stable. He is afebrile. Denies any chest pain, shortness of breath, fever, chills, nausea, vomiting, or headache. Laboratory work is excellent. Glucose has remained high. Continue with sliding scale extra coverage. Did walk in the blank last night. ASSESSMENT: Overall doing well. Plan is for discharge today after PT, OT session in the morning. Continue with dressing. I will have that changed today by PAs prior to discharge. Discharge on 4 mg of Coumadin. Check INR on Wednesday.
--- NOTE | 2018-02-24 06:33 | DISCHARGE SUMMARY ---
CHIEF COMPLAINT: Left knee pain. HISTORY OF PRESENT ILLNESS: A 72-year-old male who underwent elective left total knee replacement. His hospital course has been uneventful. His sugars are running a little bit high; however, he is getting extra coverage and there is no major issue. He denies any issues like chest pain, shortness of breath, fever, chills, nausea, vomiting, or headache. PAST MEDICAL HISTORY: Remarkable for hypertension, sleep apnea, migraine, diabetes, osteoarthritis, back pain, GERD, kidney stones, BPH, history of skin cancer, and moderate obesity. PAST SURGICAL HISTORY: Previous surgeries include appendectomy varicocele repair, left knee arthroscopy, right knee replacement, back surgery, skin biopsies. ALLERGIES: None. PREADMISSION MEDICATIONS: Include aspirin 325 daily, calcium daily, clobetasol topical cream, felodipine 10 mg daily, glucosamine, Humalog, hydrochlorothiazide, losartan, Lantus, metformin, omeprazole, multivitamins, pravastatin, terazosin, vitamin C, and zinc daily. He will discontinue the 325 aspirin while he is on Coumadin and switch that to 81 mg. He will be discharged on Coumadin 4 mg daily. Check INR on Wednesday. SOCIAL HISTORY: Reveals he is retired. No tobacco or alcohol use. FAMILY HISTORY: Noncontributory. REVIEW OF SYSTEMS: As noted above. ASSESSMENT: Doing well status post left total knee replacement. We will discharge today after PT, OT session. Continue maximum glucose coverage.
[2018-02-24 06:54] LABS: HEMOGLOBIN A1C 6.6 % (4.5-5.6)
[2018-02-24] MEDS ORDERED: DEXAMETHASONE INJ 10 MG in SYRINGE 0 ML IV ONE (07:30)
--- NOTE | 2018-02-24 07:30 | Pharmacy Progress Note ---
Glycemic Control Intl Consult Date of Service February 24, 2018. Scope Glycemic Pharmacist consulted by Dr Gamez on 02/22/18 PM for glycemic control and to write orders per [facility] inpatient glycemic control protocol Objective Weight (Kilograms): 103.400 Accuchecks BSG (last 24hrs): Test 02/23/18 09:00 02/23/18 12:28 02/23/18 17:23 02/23/18 20:35 Bedside Glucose 242 mg/dl (70-99) 274 mg/dl (70-99) 284 mg/dl (70-99) 310 mg/dl (70-99) Test 02/23/18 23:59 02/24/18 03:35 02/24/18 04:07 Bedside Glucose 287 mg/dl (70-99) 279 mg/dl (70-99) Random Glucose 280 mg/dl (70-99) Laboratory Data (last 24hrs) Test 02/24/18 04:07 Anion Gap 2.0 mmol/L BUN/Creatinine Ratio 24.6 Blood Urea Nitrogen 21 mg/dl Creatinine 0.86 mg/dl Hemoglobin A1c 6.6 % Potassium Level 4.1 mmol/L Sodium Level 134 mmol/L White Blood Count 9.10 K/uL HbA1c Test 02/24/18 04:07 Hemoglobin A1c 6.6 % (4.5-5.6) H Recent Pertinent Medications Outpatient Anti-diabetic Regimen: * Lantus 8 units qHS * Humulin N 16 units qHS * Humalog per sliding scale (uses 3-10 units) * Metformin 1 gm qAM The patient is currently receiving: * Basal insulin: Lantus 10 units ~1500 yesterday, 22 units @ 2200 * Correctional Insulin: Novolog Correction per scale ACHS Goal Range: Low 120 mg/dL - High 150 mg/dL Correction Factor: 25 mg/dL/unit * Prandial insulin: Per carb ratio of 1 unit per 10 grams CHO consumed * Oral Agents: Currently on hold Risk Factors for Insulin Resistance: * Steroids: intraop Decadron * Recent Surgery: POD #1 s/p TKA * Diet: type 2 diabetes Assessment & Plan ASSESSMENT: * 72 y/o male s/p TKA with a history of type 2 diabetes, managed by [facility]. Pharmacy was consulted late last evening for glycemic management when BSGs were almost 300 mg/dL. Overnight checks were added and patient ended up receiving 51 units of insulin yesterday (receives up to 54 units as an outpatient). * BSGs still elevated this AM - fasting of 280 mg/dL * Suspect this is most likely from Decadron in ortho mix and reduced insulin doses prior to surgery * I initially ordered a large dose of Lantus this AM to be given with the AM dose of Decadron he was to receive but the Decadron ended up being discontinued d/t high BSGs. Will still give Lantus this AM b/c of lasting effects of Decadron from yesterday but give a lower dose (0.2 units/kg). * CF/CR were tightened this AM to insulin calc estimates using wt/stress of 3 - will continue for now PLAN FOR INPATIENT GLYCEMIC CONTROL: * Holding outpatient oral diabetes medications * Basal insulin with LANTUS 20 units x 1 this AM * Correctional Insulin with NOVOLOG per scale ACHS or Q6hrs while NPO * Goal Range: Low 120 mg/dL - High 150 mg/dL * TIGHTEN Correction Factor: 15 mg/dL/unit * TIGHTEN Nutritional / Prandial insulin per carb ratio of 1 unit per 5 grams CHO consumed Discharge recommendations: * A1c indicates excellent outpatient control * Okay to resume outpatient regimen on discharge * BSGs may continue to be elevated throughout today d/t Decadron from yesterday. Extra dose of Lantus this AM should help with this. Patient may just need to take extra Humalog as per sliding scale. Thank you.
[2018-02-24] MEDS: OXYCODONE HCL IR 5 MG TAB (IMMEDIATE RELEASE) PO PRN ×2 (07:49→13:16)
[2018-02-24] MEDS ORDERED: OXYC-57 PO (08:11)
[2018-02-24] MEDS ORDERED: WARF2TAB PO (08:11)
--- NOTE | 2018-02-24 08:14 | Discharge Instructions ---
Discharge Instructions Date of Service February 24, 2018. Admission Reason for Admission: Left Knee Degenerative Joint Disease Discharge Discharge Diagnosis / Problem: Left knee s/p total knee replacement Discharge Goals Goal(s): Decrease discomfort, Improve function, Increase independence Activity Recommendations Activity Limitations: as noted below Lifting Limitations: gradually increase as tolerated Exercise/Sports Limitations: until after follow-up appointment Shower/Bathe: keep incision dry Driving or Machine Use: No driving until cleared by Dr. Burton Weightbearing Status: Left weightbearing (as tolerated) . Instructions / Follow-Up Instructions / Follow-Up New Medicine: * You will likely be taking one or more of these medications: 1. Percocet - Take, as directed, when you need it, every four to six hours to control your pain. 2. Coumadin - Thins your blood to lessen the chance of forming a blood clot. The dose of this is different for each person and is based on your blood tests that are done twice a week. * The most common side effects of pain medicine and iron are nausea and constipation. If nausea or constipation is too much of a problem or if you have any questions about your new medicines or doses, call [facility] at . We will try to help you manage these issues. VERY IMPORTANT TO READ AND REVIEW" Blood Clots and Blood Thinning Medicine: * You are given Coumadin during the immediate post-operative period to lessen the risk of blood clots forming in your legs and/or lungs. Coumadin is usually given for six weeks after surgery. * The prescription is for 2 mg tablets. At discharge, you should understand your dose and take it all at the same time every day, preferably after dinner. * You need to get your blood checked 1 - 2 times per week for six weeks or as directed. * If your dose needs to change, we will call you. Do not take your medication on the day of the blood test until we call you. Pain: * The immediate post-operative period after knee replacement surgery is often quite painful. * You are given a prescription for pain medicine. You should take it, as directed, when you need it, especially before physical therapy and before going to bed. Pain that interferes with sleep is very common and can last several months. * You will likely need pain medicine for the first four to six weeks. It will not stop all of the pain. The pain will lessen and as you feel better, you may change to milder pain medicine such as Tylenol. * The most common side effects of pain medicine are nausea and constipation, so don't take more than you need. Physical Therapy: * You will have physical therapy two or three times each week for four to six weeks after your surgery in order to regain your knee range of motion and to retrain your knee to work properly. * It is just as important to make sure you are getting your knee perfectly straight as it is to regain your knee bend. * Taking a pain pill an hour before therapy can help you have a more productive and comfortable therapy session if needed. Home Exercise: * You were shown a series of exercises (heel props, heel slides, etc.) in the hospital. Do these exercises three to four times each day including the exercises you were shown in physical therapy. Walking: * Get up and walk several times each day. For the first four weeks, try not to stand or walk for more than one hour at a time. If you do stand or walk for more than one hour, you will not hurt anything, but your knee and leg will likely swell. * As you feel comfortable, you may change from the walker or crutches to a cane and then to independent walking. SELF CARE INSTRUCTIONS AFTER TOTAL KNEE REPLACEMENT A. You may need to continue a physical therapy program after discharge from the hospital. There are several options available to you. Your doctor will assist you in selecting the best one for you. 1. An out-patient facility 2 to 3 times a week for therapy or home therapy. 2. Continue working on all exercises taught to you in the hospital. Your goals should be to increase bending of your knee to 90 degrees and beyond and to fully straighten your knee. B. You may progress at your own pace from walking with a walker or crutches to a cane; then to no assistive devices. C. Make walking a part of your daily routine. Be up as much as comfortable with rest periods throughout the day. Rest with leg elevation is very important. Use the ice wrap frequently for the first 3-4 weeks. D. There are no restrictions on activities. You may ride in a car, shop, participate in paint tester and all social activities. E. Wear the long elastic stockings (DEBBIE hose) 20 hours a day for six weeks after surgery. They can be removed several times a day for laundering and for a shower. F. Do not place a pillow behind your knee when resting. A pillow at your ankle is okay. VERY IMPORTANT TO READ AND REVIEW A. Take Coumadin, Aspirin or Lovenox (blood thinning medications) as directed by your doctor. If on Coumadin, have a pro-time (blood test) drawn according to your doctor's instructions. This will tell the doctor how well the Coumadin is thinning your blood. 1. YOU WILL BE GIVEN AN ORDER AT DISCHARGE FOR PT/INR (BLOOD WORK). PLEASE HAVE THIS DONE INSTRUCTED. PLEASE CALL OUR OFFICE AFTER YOUR BLOODWORK IS COMPLETE SO WE CAN TRACK YOUR RESULTS. IF YOU ARE GOING TO OUTPATIENT PHYSICAL THERAPY, YOU WILL NEED TO GO TO OUTPATIENT TESTING TO HAVE IT DRAWN. B. There are a few signs you need to watch for after you are home. Call [facility] if you notice any of the followin. Increased severe knee pain. Some pain is expected especially when you exercise. 2. Increased swelling in your leg or knee; pain or swelling of the calf muscle in either lower leg. 3. Any fluid drainage from the incision. 4. Shortness of breath or chest pain. C. Please call [facility] at if you have any concerns or questions about your operation or recovery. The doctor or his nurse will return your call promptly. D. You must take antibiotics before dental work, bladder, bowel or other surgery. Call the office to obtain a prescription at least 2 days prior to your appointment. * CALL IF INCREASED PAIN, REDNESS, DRAINAGE OR FEVER GREATER THAT 101. * Sutures should be removed 12-14 days after surgery unless you are on chronic steriods, then it will be 14-18 days after surgery. Call your doctor if: * Temperature above 101 degrees F. * Pain not relieved by pain medicine ordered. * Increased drainage or redness from incision. * Notify your doctor with any questions or concerns. Current Hospital Diet Patient's current hospital diet: Diabetes Type 2 Diet Discharge Diet Recommended Diet: Diabetes Type 1 Diet Procedures Procedures Performed: Left Total Knee Arthroplasty Pending Studies Studies pending at discharge: no Laboratory Results Hemoglobin A1c Test 02/24/18 04:07 Range/Units Estimated Average Glucose 143 mg/dl Hemoglobin A1c 6.6 H 4.5-5.6 % Lipid Panel Test 01/31/18 08:03 Range/Units Triglycerides Level 54 0-150 mg/dl Cholesterol Level 148 0-200 mg/dl HDL Cholesterol 77 mg/dl Cholesterol/HDL Ratio 1.9 LDL Cholesterol, Calculated 60 mg/dl Medical Emergencies . Who to Call and When: Medical Emergencies: If at any time you feel your situation is an emergency, please call 911 immediately. . Non-Emergent Contact Non-Emergency issues call your: Primary Care Provider, Surgeon Call Non-Emergent contact if: temperature is above 101, wound has increased drainage, wound has increased redness, wound has increased pain, you have any medication questions . "Provider Documentation" section prepared by Donovan Flores PA-C. . [facility] Drug Monitoring Program Search Results: no issues identified
--- NOTE | 2018-02-24 08:20 | Orthopedic Progress Note ---
Orthopedic Progress Note Date of Service February 24, 2018. Subjective Post OP Day: 1 Reports: feeling well, pain controlled w PO medications, Denies: complaints, chest pain, SOB, nausea / vomiting, light headedness, calf pain Additional Notes: States his blood sugars were slightly high last night. Max 376. Objective calves soft nontender, N/V intact, capillary refill less than 2 sec., dressing C /D/I, incision C/D/I, A&O x3, toes mobile, CMS intact Expected post op edema and ecchymosis. He has full extension. Wound looks very good. No active drainage. Date Time Temp Pulse Resp B/P (MAP) Pulse Ox O2 Delivery O2 Flow Rate FiO2 02/24/18 07:49 36.5 66 22 121/70 (87) 96 Room Air 02/24/18 07:43 96 Room Air 02/24/18 05:22 102/64 (77) 02/24/18 03:33 36.9 58 16 90/56 (67) 97 BiPAP 02/24/18 00:15 99 Room Air 2.0 02/23/18 23:50 36.7 71 12 120/71 (87) 98 Room Air 02/23/18 19:43 36.7 65 17 128/75 (92) 94 Room Air 02/23/18 16:06 36.6 58 16 127/73 (91) 94 Room Air 02/23/18 15:30 Room Air 02/23/18 13:04 62 16 127/81 (96) 95 02/23/18 11:40 36.4 54 16 126/80 (95) 99 Nasal Cannula 2.0 02/23/18 10:38 36.5 55 16 118/73 (88) 99 Nasal Cannula 2.0 02/23/18 10:10 36.4 51 16 113/73 (86) 100 Nasal Cannula 2.0 02/23/18 09:41 99 Nasal Cannula 2.0 02/23/18 09:40 98 Nasal Cannula 2.0 02/23/18 09:38 36.6 52 14 108/71 (83) 99 Nasal Cannula 2.0 02/23/18 09:15 36.7 54 13 107/62 98 Nasal Cannula 2 02/23/18 09:05 51 17 107/65 97 Nasal Cannula 2 02/23/18 08:55 53 14 106/62 99 Nasal Cannula 2 02/23/18 08:45 53 12 106/64 99 Nasal Cannula 2 02/23/18 08:35 53 16 106/62 97 Nasal Cannula 2 02/23/18 08:27 36.4 63 12 103/59 97 Nasal Cannula 2 Laboratory Results 24 Hours: Test 02/24/18 04:07 Hematocrit 30.2 % Hemoglobin 10.3 g/dL Prothromb Time International Ratio 1.0 Prothrombin Time 10.9 SECONDS Assessment & Plan Assessment: Left knee post op day 1 total knee arthroplasty Plan: Dressing changed this morning. Wound looks very good. Continue DEBBIE hose PT/OT this morning. Max flexion 90 degrees Anticipate D/C to home today with home health for INR levels. continue coumadin per nomogram Will hold dexamethasone dose due to elevated glucose levels. f/u in the office 03/10 as scheduled. Discharge Planning Discharge Planning: home with home health Pain Management: Percocet DVT Prophylaxis: TEDs, SCDs, Coumadin
[2018-02-24] MEDS ORDERED: INSULIN GLARGINE SOLOSTAR 100 UNITS/ML 3 ML PEN SC ONE ×2 (08:45→09:00)
[2018-02-24] MEDS ORDERED: INSULIN GLARGINE SOLOSTAR 100 UNITS/ML 3 ML PEN SC SCH (09:00)
[2018-02-24] MEDS: PANTOprazole SOD 40 MG TAB PO SCH (09:17)
[2018-02-24] MEDS: LOSARTAN/HCTZ 50-12.5 EA TAB PO SCH (09:17)
[2018-02-24] MEDS: MULTIVITAMIN TAB PO SCH (09:17)
[2018-02-24] MEDS: DOCUSATE SODIUM 100 MG CAP PO SCH (09:17)
[2018-02-24] MEDS: FERROUS GLUCONATE 324 MG TAB PO SCH ×2 (09:17→13:14)
--- NOTE | 2018-02-24 10:43 | [facility] Operative Report ---
Operative Report Operative Date February 23, 2018. Pre-Operative Diagnosis Left Knee Degenerative Joint Disease Post-Operative Diagnosis Left knee same as preop Procedure(s) Performed Left Total Knee Arthroplasty Surgeon Dr. Burton Ore Roaster Surgeon(s) Doonvan Flores PA-C Estimated Blood Loss 100 ml Findings Left knee DJD Fluids 1100cc Specimens A. Left Knee Bone and Tissue Drains None Anesthesia Type MAC Spinal Regional Complication(s) none Disposition no Recovery Room / PACU Indications This 72-year-old white male presented to the office with complaints of left knee pain. Pain has been increasing with time. He elected to proceed with total knee arthroplasty in hopes of alleviating his discomfort. Patient previously had a right total knee arthroplasty and did well with that. He elected to proceed with the same on the left. Preoperative imaging was obtained. He had tried conservative care including activity modification and oral anti-inflammatories without improvement. Description of Procedure Patient was administered a regional block and then taken to the operating room where he was given sedation. He was prepped and draped in usual sterile fashion. Please see Dr. Burton's operative report for specifics of the procedure. I was present for the entire case from initial patient positioning through final wound closure. Assistance was provided in tissue retraction, hemostasis, trial implant placement, final implant placement, and final wound closure. Patient was taken to the recovery room in satisfactory condition. I attest to the content of the Intraoperative Record and any orders documented therein. Any exceptions are noted below.
--- NOTE | 2018-02-24 11:52 | Hospitalist Progress Note ---
Hospitalist Progress Note Date of Service February 24, 2018. (Tami Benitez PA-C) Subjective Pt evaluation today including: conversation w/ patient, conversation w/ family , physical exam, chart review, lab review, review of studies Pain: Minimal L knee pain PO Intake: Good Voiding: no voiding problems The patient was seen and examined this morning. Pt reports doing well today. He notes at 0330 nursing had checked his BP and was slightly low, so he was placed back on IVFs overnight. He reports having some knee pain at that time however denies any lightheadedness or dizziness. He was asleep prior to this reading of 90/50s and this morning BP is back up to normal. He also notes his glucose was elevated this morning near 300 despite the increase Lantus dosing. He has been working with PT/OT without difficulty, and is ambulating to the bathroom well. Plans to wait about 2 weeks for outpatient therapy after discharge per Dr. Boo. His is present at bedside and was update/all questions and concerns were addressed. Additional Comments: Constitutional: No fever, No chills, No sweats Eyes: No diplopia, No problem reported ENT: No sore throat, No trouble swallowing Respiratory: No cough, No shortness of breath Cardiovascular: No chest pain, No palpitations Abdomen: No pain, No nausea, No vomiting, No diarrhea, No constipation Musculoskeletal: See HPI. Genitourinary - Male: No hematuria, No dysuria Neurologic: No weakness, No numbness/tingling Integumentary: No rash, No itch (Tami Benitez, CAROLYN) Objective Vital Signs Date Time Temp Pulse Resp B/P (MAP) Pulse Ox O2 Delivery O2 Flow Rate FiO2 02/24/18 11:11 36.5 66 22 96 Room Air 02/24/18 09:00 96 Room Air 02/24/18 07:49 36.5 66 22 122/70 (87) 96 Room Air 02/24/18 07:43 96 Room Air 02/24/18 05:22 102/64 (77) 02/24/18 03:33 36.9 58 16 90/56 (67) 97 BiPAP 02/24/18 00:15 99 Room Air 2.0 02/23/18 23:50 36.7 71 12 120/71 (87) 98 Room Air 02/23/18 19:43 36.7 65 17 128/75 (92) 94 Room Air 02/23/18 16:06 36.6 58 16 127/73 (91) 94 Room Air 02/23/18 15:30 Room Air 02/23/18 13:04 62 16 127/81 (96) 95 (Tami Benitez PA-C) Physical Exam Notes: General Appearance: WD/WN, no apparent distress Head: normocephalic, atraumatic Eyes: PERRL, EOMI ENT: hearing grossly normal, TMs normal Neck: supple, no JVD Respiratory/Chest: chest non-tender, lungs clear, no respiratory distress, no accessory muscle use Cardiovascular: regular rate, rhythm, no murmur, normal peripheral pulses Abdomen/GI: normal bowel sounds, non tender, soft Extremities/Musculoskeletal: no calf tenderness, + pertinent finding (L knee dressing c/d/i, leg brace in place, Sensation to light touch distally intact. ) Neurologic/Psych: alert, normal mood/affect, oriented x 3 Skin: normal color, warm/dry (Tami Benitez PA-C) Laboratory Results Last 24 Hours Test 02/23/18 12:28 02/23/18 17:23 02/23/18 20:35 02/23/18 23:59 Bedside Glucose 274 mg/dl 284 mg/dl 310 mg/dl 287 mg/dl Test 02/24/18 03:35 02/24/18 04:07 02/24/18 08:24 Bedside Glucose 279 mg/dl 190 mg/dl White Blood Count 9.10 K/uL Red Blood Count 3.36 M/uL Hemoglobin 10.3 g/dL Hematocrit 30.2 % Mean Corpuscular Volume 89.9 fL Mean Corpuscular Hemoglobin 30.7 pg Mean Corpuscular Hemoglobin Concent 34.1 g/dl RDW Standard Deviation 45.2 fL RDW Coefficient of Variation 13.6 % Platelet Count 165 K/uL Mean Platelet Volume 10.1 fL Prothrombin Time 10.9 SECONDS Prothromb Time International Ratio 1.0 Sodium Level 134 mmol/L Potassium Level 4.1 mmol/L Chloride Level 103 mmol/L Carbon Dioxide Level 29 mmol/L Anion Gap 2.0 mmol/L Blood Urea Nitrogen 21 mg/dl Creatinine 0.86 mg/dl Est Creatinine Clear Calc Drug Dose 96.6 ml/min Estimated GFR () 100.4 Estimated GFR (Non- 86.6 BUN/Creatinine Ratio 24.6 Random Glucose 280 mg/dl Estimated Average Glucose 143 mg/dl Hemoglobin A1c 6.6 % Calcium Level 8.2 mg/dl (Tami Benitez PA-C) Assessment and Plan This is a 72 yo M with PMHx of HTN, DM II, diabetic peripheral neuropathy, MATTHEW on cpap, GERD, BPH, back pain who underwent elective left TKA by Dr. Boo on 02/23/18. S/p L TKA - pain management, bowel regimen, DVT ppx with coumadin per primary team - PT/OT on board - doing well, plans for outpt pt after 2 weeks. - follow am hgb = 10.3 today, outpatient 14 - likely acute blood loss anemia + partially dilutional. HTN HLD - Continue home antihypertensives: hyzaar 100-25 mg QAM, statin therapy - Overnight hypotensive however pt was asymptomatic, at this time likely blood loss anemia which was contributing to lower BP. Encourage oral intake and can continue home dosing of hyzaar. No needs for other intervention at this time. DM II - Holding metformin - Was given Lantus 20 U HS to adjust for steroid/surgery (home dosing is 8 U QPM ) and ISS with accuchecks achs for now - pt uses sliding scale at home - Can resume home dosing of Lantus is going home tonight with sliding scale of NPH and novolog. MATTHEW on cpap - stable - worse cpap overnight BPH - Continue hytrin and flomax GERD - cont ppi DVT ppx: teds, scds, coumadin CODE: FULL Disposition: From home, discharge to home today after lunch and PT Thank you for allowing us to participate in the care of Mr. Langston. (Tami Benitez PA-C) Attending Attestation - Pt seen/examined, chart reviewed, care plan d/w ETHAN Benitez. I agree w/ the mast components of her documentation. Pt w/o complaints except for left knee pain. +flatus. no cp, dyspnea, abd pain. tolerated breakfast VSS, occasional low-normal BP fsbs about 190-220 this am after awakening gen - nad neck - no JVD heart - autumn, s1, s2 lungs - CTA b/l abd - soft ext - left knee in dressing; mild edema left ankle A/P: s/p left TKR - per ortho HTN - low or low-normal BPs, due to acute blood loss anemia - would hold hyzaar at discharge; patient asked to check BPs at home- once he sees values rise into the 130s or 140s then resume hyzaar acute blood loss anemia - ferrous sulfate x 2 months post-discharge uncontrolled T2DM - due to perioperative stress & steroids - should improve over next 24 hours; adjustments made this am bowel regimen after discharge at this time he is medically stable and could be d/c home with appropriate follow-up Ciro San MD (Hermes San MD)
[2018-02-24] MEDS ORDERED: FRRS300 PO (12:37)
[2018-02-24] MEDS ORDERED: MRLP17X PO (12:37)
[2018-02-24] MEDS ORDERED: WARFARIN SOD 5 MG TAB PO ONE (12:45)
== END 2018-02-24 14:32 | disposition home health service (06) | DRG 470 ==
LOC: C.ACU 05:04 → C.3E 06:15 → ENRESERV 09:05
PROVIDERS: ADMIT Physical Medicine & Rehabilitation Sports Medicine; ATTEND Physical Medicine & Rehabilitation Sports Medicine
PROC: 0SRD0J9 Replacement of Left Knee Joint with Synthetic Substitute, Cemented, Open Approach (ICD-10-PCS; principal; 2018-02-23 07:00)
DX: M17.12 Unilateral primary osteoarthritis, left knee (principal); D62 Acute posthemorrhagic anemia; I10 Essential (primary) hypertension; E11.42 Type 2 diabetes mellitus with diabetic polyneuropathy; E11.65 Type 2 diabetes mellitus with hyperglycemia; T38.0X5A Adverse effect of glucocorticoids and synthetic analogues, initial encounter; K21.9 Gastro-esophageal reflux disease without esophagitis; G47.30 Sleep apnea, unspecified; N40.0 Benign prostatic hyperplasia without lower urinary tract symptoms; E66.09 Other obesity due to excess calories; Z68.30 Body mass index [BMI] 30.0-30.9, adult; Z79.4 Long term (current) use of insulin; Z79.82 Long term (current) use of aspirin; Z79.84 Long term (current) use of oral hypoglycemic drugs; Z79.899 Other long term (current) drug therapy; Z87.891 Personal history of nicotine dependence

== ENCOUNTER → 2018-03-07 | Outpatient (CLI) | payer BC, OTHER ==
[~2018-03-07] MED LIST changes: +FRRS300 PO; -IBUP1TAB PO; +MRLP17X PO; -NAPR1TAB9 PO; +OXYC-57 PO; +WARF2TAB PO
[2018-03-07 11:09] LABS: INR 1.5 (0.9-1.1)
== END | disposition home or self-care (01) ==
LOC: C.LABSPEC 10:51
PROVIDERS: ATTEND Physical Medicine & Rehabilitation Sports Medicine
DX: Z79.01 Long term (current) use of anticoagulants (principal); Z51.81 Encounter for therapeutic drug level monitoring